=== PATIENT | female | born 1990 | race Two or more races ===

== ENCOUNTER 2020-08-09 11:40 | Emergency (ER) | payer OTHER, SELFPAY ==
[2020-08-09 11:41] VITALS: BP 122/81; PULSE 73; RESP 16; TEMP 36.8; O2SAT 100; BMI 27.1
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
== END 2020-08-09 14:39 | disposition home or self-care (01) ==
PROVIDERS: Emergency Provider Emergency Medicine; PCP Internal Medicine
DX: S13.4XXA Sprain of ligaments of cervical spine, initial encounter (principal); S16.1XXA Strain of muscle, fascia and tendon at neck level, initial encounter; V43.62XA Car passenger injured in collision with other type car in traffic accident, initial encounter; Y93.89 Activity, other specified; Y92.414 Local residential or business street as the place of occurrence of the external cause; Y99.9 Unspecified external cause status
CPT/HCPCS: 99283

== ENCOUNTER 2020-12-04 16:42 | Emergency (ER) | payer OTHER, SELFPAY ==
--- NOTE | 2020-12-04 | ECG_ITS ---
Test Reason : CHEST PAIN Blood Pressure : / mmHG Vent. Rate : 074 BPM Atrial Rate : 074 BPM P-R Int : 124 ms QRS Dur : 068 ms QT Int : 380 ms P-R-T Axes : 037 055 057 degrees QTc Int : 421 ms Normal sinus rhythm Normal ECG No previous ECGs available Referred By: Generic ED Physician Electronically Signed By:HUSSAIN ELDER
--- NOTE | ~2020-12-04 | XR_ITS ---
EXAMINATION: XR CHEST CLINICAL INFORMATION: Chest pain and cough COMPARISON: None TECHNIQUE: Frontal view of the chest was obtained. FINDINGS: No significant abnormality is noted involving the heart, lungs, mediastinum, bony thorax or soft tissues. XR/XR chest 1V IMPRESSION: Unremarkable examination.
[2020-12-04 16:56] VITALS: BP 120/79; PULSE 75; RESP 16; TEMP 36.8; O2SAT 99; BMI 27.3
--- NOTE | 2020-12-04 17:08 | ED_ITS ---
HPI - Chest Pain General Chief Complaint: Chest Pain Stated Complaint: Chest pain/ +Covid 11/24 Time Seen by Provider: 12/04/20 17:07 Source: patient Mode of arrival: ambulatory Limitations: no limitations History of Present Illness HPI narrative: 30-year-old female presents with upper respiratory symptoms consistent with her COVID positive diagnosis and has chest pain on inspiration with heaviness greater at night during the day. She states that she has been taking [id number] medications for her cough with poor effect. She did not report any recent travel, clotting factor deficiencies, hormonal chemotherapy use, denies palpitations, dizziness, abdominal pain, abdominal distention, nausea, vomiting, diarrhea, constipation, and edema. MD complaint: chest pain Onset (ago): day(s) Timing of current episode: episodic Onset: during rest Pain location: substernal Pain radiation: none Severity: moderate Quality: tightness and heaviness Relieving factors: nothing Exacerbating factors: exertion Context: recent illness Associated symptoms: fever and cough Treatment prior to arrival: none Risk Factors Coronary artery disease risk factors: none Thoracic aortic dissection risk factors: none Related Data On Oral Contraceptives: No Previous Rx's Medication Instructions Recorded cyclobenzaprine 10 mg tablet 10 mg PO TID PRN #10 tab 08/09/20 ibuprofen 600 mg tablet 600 mg PO Q8H PRN #20 tab 08/09/20 lidocaine 5 % topical patch 1 patch TOPICAL DAILY #15 ea 08/09/20 (Lidoderm) benzonatate 100 mg capsule 100 mg PO TID PRN 10 Days #30 cap 12/04/20 (Tessalon Perles) codeine 10 mg-guaifenesin 100 mg/5 10 ml PO Q4-6H PRN 7 Days ml 12/04/20 mL oral liquid Allergies Allergy/AdvReac Type Severity Reaction Status Date / Time No Known Allergies Allergy Unverified 12/25/19 16:47 Review of Systems Review of Systems: Constitutional: positive Fever, no Chills, positive fatigue, positive Malaise ENT/Mouth: No sore throat, positive runny nose Eyes: No Discharge Cardiovascular: Positive Chest Pain, No SOB Respiratory: Positive Cough, positive Sputum, No Wheezing, No Smoke Exposure, No Dyspnea Gastrointestinal: No Nausea, No Vomiting, No Diarrhea Genitourinary: no irregular bleeding, No Dysuria, No Urinary Frequency, No Hematuria, No Urinary Incontinence, No Urgency, No Flank Pain, Musculoskeletal: positive Myalgia Skin: No rash Neuro: No Headache Yes all other systems are reviewed and are negative [facility] Past Medical History Attestation statement: The following information was validated with the patient. Medical History No known health problems Surgical History H/O LEEP [place] teeth extracted Social History Social History Advance Directives: No Advance Directives Information Provided: No Patient : No Physical Exam Vital Signs: Vital Signs: Last Vital Signs Temp 98.3 F 12/04/20 16:56 Pulse 75 12/04/20 16:56 Resp 16 12/04/20 16:56 BP 120/79 12/04/20 16:56 Pulse Ox 99 12/04/20 16:56 Body Mass Index 27.3 Appearance: Alert. Oriented X3. No acute distress. Eyes: Pupils equal, round and reactive to light. ENT: Pharynx normal. Neck: Normal inspection. Neck supple. CVS: Normal heart rate and rhythm. Pulses normal. Respiratory: No respiratory distress. Lung sounds clear to auscultation all lobes. No chest wall tenderness to palpation. Abdomen: Soft and nontender. No past splenomegaly. Skin: Skin warm and dry. Normal skin color. Normal skin turgor. Extremities: No lower extremity edema. Moves all extremities against resistance, gait well balanced well coordinated. Neuro: No motor deficit. No sensory deficit. Cranial nerves 2-12 intact. Course Course Course Narrative: 30-year-old female presents with increase of COVID-19 symptoms. States that she does not have any prior history of DVT, is not on any hormones or chemotherapeutic agents, has not had any recent travel, denies swelling in extremities. No family history of clotting factor deficiency. Patient's EKG is normal sinus, will order chest x-ray, and D-dimer to alleviate patient's concern regarding DVT versus PE. Patient's PE scores are 0. D-dimer negative. Chest x-ray negative. EKG normal sinus. Low likelihood of PE, DVT, ACS. Will discharge home with supportive measures for COVID-19. Patient verbalized understanding of and agrees to plan of care discharge home. MDM - Chest Pain Differential Diagnosis Differential diagnosis: Likely fracture of rib, pneumothorax, atypical chest pain, costochondritis and chest pain Medical Records Data Attestation: I reviewed the patient's medical records. Lab Data Attestation: I reviewed the patient's lab results. Labs: Lab Results 12/04/20 Range/Units 17:27 D-Dimer < 200 NG/ML Imaging Data Chest x-ray: Attestation: I personally reviewed and interpreted this imaging study as follows: Radiologist's impression: EXAMINATION: XR CHEST CLINICAL INFORMATION: Chest pain and cough COMPARISON: None TECHNIQUE: Frontal view of the chest was obtained. FINDINGS: No significant abnormality is noted involving the heart, lungs, mediastinum, bony thorax or soft tissues. XR/XR chest 1V IMPRESSION: Unremarkable examination. ECG Data ECG #1: Attestation: I personally reviewed and interpreted this ECG as follows: ECG interpretation date: 12/04/20 ECG interpretation time: 18:36 Prior ECG tracings: not available for review Interpretation: Ventricular rate 74 beats per minute, NC 124, QRS 68, QTC 380, QTC 421, normal sinus rhythm, normal EKG, no indication of ST elevation or depression indicating ischemia no prior EKGs for evaluation Discharge Plan Discharge Clinical Impression: Atypical chest pain, COVID-19 Patient Disposition: Home, Self-Care Instructions: Noncardiac Chest Pain (ED), COVID-19 (Coronavirus Disease 2019) (ED) Additional Instructions: You were evaluated for chest pain related to COVID-19 diagnosis. Your D-dimer is negative. It is highly unlikely that you have blood clot at this time. Your chest x-ray is normal. Please continue to follow social isolation guidelines for COVID-19. Continue to take supportive measures which include [id number] cough suppressants and Tylenol. Thank you for choosing this emergency department for evaluation. Please follow-up with primary care physician as needed. Return to the emergency department for any new, concerning, or worsening symptoms. Prescriptions: New benzonatate [Tessalon Perles] 100 mg capsule 100 mg PO TID PRN (Reason: cough) 10 Days Qty: 30 RF: 0 codeine-guaifenesin 10-100 mg/5 mL liquid 10 ml PO Q4-6H PRN (Reason: cough) 7 Days RF: 0 No Action cyclobenzaprine 10 mg tablet 10 mg PO TID PRN (Reason: muscle spasm) Qty: 10 RF: 0 lidocaine [Lidoderm] 5 % adhesive patch,medicated 1 patch topical DAILY Qty: 15 RF: 0 ibuprofen 600 mg tablet 600 mg PO Q8H PRN (Reason: pain) Qty: 20 RF: 0 Stand Alone Forms: Work/School Release Interventions: ED Discharge Assessment Last Done: 12/04/20 19:05 Discharge Date/Time: 12/04/20 19:05
[2020-12-04 18:17] LABS: D Dimer < 200 NG/ML
[2020-12-04] MEDS: Benzonatate 100 MG CAPSULE 200 MG PO (18:45)
== END 2020-12-04 19:05 | disposition home or self-care (01) ==
PROVIDERS: Nurse Practitioner Family; Emergency Provider Emergency Medicine Emergency Medical Services; PCP Internal Medicine
DX: R07.89 Other chest pain (principal); U07.1 COVID-19
CPT/HCPCS: 36415; 71045; 85379; 93005; 99283

== ENCOUNTER 2021-02-22 13:03 | Emergency (ER) | payer OTHER, SELFPAY ==
--- NOTE | ~2021-02-22 | XR_ITS ---
EXAMINATION: XR CHEST CLINICAL INFORMATION: Cough and chest discomfort COMPARISON: Previous chest x-ray November 2020 TECHNIQUE: 2 views of the chest were obtained. FINDINGS: No significant abnormality is noted involving the heart, lungs, mediastinum, bony thorax or soft tissues. XR/XR chest 2V IMPRESSION: Unremarkable examination.
[2021-02-22 13:39] VITALS: BP 113/60; PULSE 82; RESP 18; TEMP 36.3; O2SAT 98; BMI 28.1
--- NOTE | 2021-02-22 14:40 | ED_ITS ---
HPI - URI/Sore Throat General Chief Complaint: Upper Respiratory Symptoms Stated Complaint: cough, chest discomfort Time Seen by Provider: 02/22/21 14:23 Source: patient Mode of arrival: ambulatory Limitations: no limitations History of Present Illness HPI Narrative: 31-year-old female with history of COVID-19 in November 2020 presenting to the ER with chest congestion, cough, nasal congestion for the last several days. She reports usually getting sick this time of year but during this and since her symptoms seems to be persisting and not getting better. She has no known sick contacts. She has not vaccinated for COVID-19 but she recently had a few months ago. She has had no fever or chills. No shortness of breath or chest pain. Her main complaint is dry cough that is keeping up at night. MD elicited complaint: cough and nasal congestion Onset (ago): day(s) Consistency: intermittent and progressively worsening Severity: moderate Description of mucous: clear Able to tolerate fluids by mouth: Yes Exacerbating factors: nothing Relieving factors: nothing Context: sick contacts Associated symptoms: chills, nasal congestion and cough Treatments prior to arrival: none Related Data Previous Rx's Medication Instructions Recorded cyclobenzaprine 10 mg tablet 10 mg PO TID PRN #10 tab 08/09/20 ibuprofen 600 mg tablet 600 mg PO Q8H PRN #20 tab 08/09/20 lidocaine 5 % topical patch 1 patch TOPICAL DAILY #15 ea 08/09/20 (Lidoderm) benzonatate 100 mg capsule 100 mg PO TID PRN 10 Days #30 cap 12/04/20 (Tessalon Perles) codeine 10 mg-guaifenesin 100 mg/5 10 ml PO Q4-6H PRN 7 Days ml 12/04/20 mL oral liquid hydrocodone-homatropine 5 mg-1.5 5 ml PO Q6H PRN #60 ml 02/22/21 mg/5 mL (5 mL) oral syrup (Hycodan) Allergies Allergy/AdvReac Type Severity Reaction Status Date / Time No Known Allergies Allergy Unverified 12/25/19 16:47 Review of Systems Review of Systems: Constitutional: No Fever, + Chills ENT/Mouth: No sore throat, + Rhinorrhea, No Swallowing Difficulty, +Nasal congestion Eyes: No Eye Pain, No Swelling, No Redness Cardiovascular: No Chest Pain, No SOB, No Orthopnea, No Edema Respiratory: + Cough, No Sputum, No Wheezing, No dyspnea Gastrointestinal: No Nausea, No Vomiting, No Diarrhea, No abdominal Pain Musculoskeletal: No joint pain, No Myalgias Skin: No Skin Lesions, No rash Neuro: No Weakness, No Numbness, No Dizziness, No Headache Heme/Lymph: No Bruising, No Lymphadenopathy Endocrine: No Polyuria, No Polydipsia PMFSH Past Medical History Medical History No known health problems Surgical History H/O LEEP [place] teeth extracted Social History Social History Advance Directives: No Advance Directives Information Provided: Yes Physical Exam Vital Signs: Vital Signs: Last Vital Signs Temp 97.4 F 02/22/21 13:39 Pulse 82 02/22/21 13:39 Resp 18 02/22/21 13:39 BP 113/60 02/22/21 13:39 Pulse Ox 98 02/22/21 13:39 Body Mass Index 28.1 Appearance: Alert. Oriented X3. No acute distress. Eyes: Pupils equal, round and reactive to light. ENT: Pharynx normal. No tonsillar swelling or exudate. Uvula midline. tympanic membranes bilaterally. Neck: Normal inspection. Neck supple. CVS: Normal heart rate and rhythm. Pulses normal. Respiratory: No respiratory distress. Breath sounds normal. Skin: Skin warm and dry. Normal skin color. Normal skin turgor. No rashes. Extremities: No lower extremity edema. No calf tenderness. Neuro: Oriented X 3. Grossly normal, nonfocal. Course Course Course Narrative: 31-year-old female presenting to the ER with dry cough, chest congestion, nasal congestion for the last several days. She recently had COVID- 19. She is nontoxic-appearing normal vital signs on arrival. Her lungs are not clear. Viral PCR chest x-ray ordered. Reevaluation(s) Reevaluation #1: Viral PCR is negative. Her chest x-ray is clear. She most likely has a respiratory virus, treatment is supportive care. Will prescribe Vicodin p.r.n. cough due to her worsening symptoms at night and inability to sleep. She is stable for discharge home with plan to follow up with her doctor. Symptomatic management discussed as well as return precautions. Stable for DC home MDM - URI/Sore Throat Lab Data Labs: Lab Results 02/22/21 02/22/21 Range/Units 13:41 15:16 Urine Test NEGATIVE (NEGATIVE) Influenza Type A (PCR) NEGATIVE (Negative) Influenza Type B (PCR) NEGATIVE (Negative) RSV RNA Qual (PCR) NEGATIVE (Negative) SARS-CoV-2 RNA (RT-PCR) NEGATIVE (Negative) Critical Care Time Critical Care Time Critical Care Time: No Discharge Plan Discharge Clinical Impression: Upper respiratory infection Qualifiers: URI type: unspecified URI Qualified Code(s): J06.9 - Acute upper respiratory infection, unspecified Patient Disposition: Home, Self-Care Instructions: Upper Respiratory Infection (ED) Additional Instructions: You were negative for COVID-19, influenza, and RSV. Your chest x-ray was clear. Recommend [id number] cold and flu medications as needed for symptoms. Continue [id number] cough suppressants. Take the prescribed cough syrup as needed for severe coughing. This has a narcotic in it, do not drive after taking this medication. Rest and stay hydrated. Follow-up with your doctor as needed. If you develop new or worsening symptoms call 911 or come back to the ER for further evaluation. Prescriptions: New hydrocodone-homatropine [Hycodan] 5-1.5 mg/5 mL (5 mL) syrup 5 ml PO Q6H PRN (Reason: cough) Qty: 60 RF: 0 No Action cyclobenzaprine 10 mg tablet 10 mg PO TID PRN (Reason: muscle spasm) Qty: 10 RF: 0 lidocaine [Lidoderm] 5 % adhesive patch,medicated 1 patch topical DAILY Qty: 15 RF: 0 ibuprofen 600 mg tablet 600 mg PO Q8H PRN (Reason: pain) Qty: 20 RF: 0 benzonatate [Tessalon Perles] 100 mg capsule 100 mg PO TID PRN (Reason: cough) 10 Days Qty: 30 RF: 0 codeine-guaifenesin 10-100 mg/5 mL liquid 10 ml PO Q4-6H PRN (Reason: cough) 7 Days RF: 0 Stand Alone Forms: Work/School Release Interventions: ED Discharge Assessment Last Done: 02/22/21 16:38 Discharge Date/Time: 02/22/21 16:38
[2021-02-22 14:41] LABS: Influenza A PCR NEGATIVE (Negative); Influenza B PCR NEGATIVE (Negative); Resp Syncy Virus RNA Qual PCR NEGATIVE (Negative); SARS COV2 PCR INHOUSE NEGATIVE (Negative)
[2021-02-22 15:30] LABS: UPreg QC Valid YES; Urine Pregnancy NEGATIVE (NEGATIVE)
== END 2021-02-22 16:38 | disposition home or self-care (01) ==
PROVIDERS: Physician Assistant; Emergency Provider Emergency Medicine Emergency Medical Services; PCP Internal Medicine
DX: J06.9 Acute upper respiratory infection, unspecified (principal); Z20.822 Contact with and (suspected) exposure to COVID-19; Z79.899 Other long term (current) drug therapy
CPT/HCPCS: 0241U; 36415; 71046; 81025; 99283

== ENCOUNTER 2021-05-02 10:52 | Emergency (ER) | payer OTHER, SELFPAY ==
--- NOTE | ~2021-05-02 | XR_ITS ---
EXAMINATION: XR CHEST CLINICAL INFORMATION: Cough COMPARISON: Previous chest x-ray February 2021 TECHNIQUE: Frontal view of the chest was obtained. FINDINGS: No significant abnormality is noted involving the heart, lungs, mediastinum, bony thorax or soft tissues. XR/XR chest 1V IMPRESSION: Unremarkable examination.
[2021-05-02 11:11] VITALS: BP 119/79; PULSE 84; RESP 19; TEMP 36.3; O2SAT 99; BMI 26.6
[2021-05-02 11:50] LABS: COVID-19 Test Positive (Negative)
--- NOTE | 2021-05-02 12:25 | ED.URI ---
HPI - URI/Sore Throat General Chief Complaint: Upper Respiratory Symptoms Stated Complaint: Cough/SOB Time Seen by Provider: 05/02/21 11:57 Source: patient Mode of arrival: ambulatory Limitations: no limitations History of Present Illness HPI Narrative: patient has had a cough for 2 months, now with feeling worse. Can't sleep because of the cough. Saw her PCP and is going to be checked for asthma. Patient is not vaccinated, she was checked for COVID a month ago and was negative. MD elicited complaint: cough Onset (ago): week(s) Consistency: constant Severity: mild Able to tolerate fluids by mouth: Yes Relieving factors: nothing Associated symptoms: fever and chills Related Data Previous Rx's Medication Instructions Recorded cyclobenzaprine 10 mg tablet 10 mg PO TID PRN #10 tab 08/09/20 ibuprofen 600 mg tablet 600 mg PO Q8H PRN #20 tab 08/09/20 lidocaine 5 % topical patch 1 patch TOPICAL DAILY #15 ea 08/09/20 (Lidoderm) benzonatate 100 mg capsule 100 mg PO TID PRN 10 Days #30 cap 12/04/20 (Tessalon Perles) codeine 10 mg-guaifenesin 100 mg/5 10 ml PO Q4-6H PRN 7 Days ml 12/04/20 mL oral liquid hydrocodone-homatropine 5 mg-1.5 5 ml PO Q6H PRN #60 ml 02/22/ mg/5 mL (5 mL) oral syrup (Hycodan) benzonatate 100 mg capsule 100 mg PO TID PRN #30 cap 05/02/21 Allergies Allergy/AdvReac Type Severity Reaction Status Date / Time No Known Allergies Allergy Unverified 12/25/19 16:47 Review of Systems Constitutional: Constitutional: Reports no additional constitutional complaints Eyes: Eyes: Reports no additional eye complaints ENT: Denies dizziness Cardiovascular: Cardiovascular: Reports no additional cardiovascular complaints Respiratory: Respiratory: Reports as per HPI Gastrointestinal: Gastrointestinal: Reports no additional gastrointestinal complaints Genitourinary: Genitourinary: Reports no additional female genitourinary complaints Musculoskeletal: Musculoskeletal: Reports no additional musculoskeletal complaints Integumentary/Breasts: Skin/Breast: Denies rash Neurologic: Reports system reviewed and no additional complaints, except as documented, Denies dizziness and Denies Sensory deficit (Neuro) Psychiatric: Psychiatric: Denies anxiety PMFSH Past Medical History Medical History No known health problems Surgical History H/O LEEP [place] teeth extracted Social History Social History Advance Directives: No Advance Directives Information Provided: No Patient : No Physical Exam Vital Signs: Vital Signs: Last Vital Signs Temp 97.4 F 05/02/21 11:11 Pulse 84 05/02/21 11:11 Resp 19 05/02/21 11:11 BP 119/79 05/02/21 11:11 Pulse Ox 99 05/02/21 11:11 BMI result Body Mass Index 26.6 Const: General: healthy appearing Nutritional Appearance: average body habitus Orientation/consciousness: oriented to person and patient oriented x3 Limitations: no limitations HENMT: Head: Yes normal to inspection Ears: external ears normal General nose exam: Normal external nose present Mouth: Normal oral and palatal mucosa present and oropharynx normal Throat: Yes posterior oropharynx normal Eyes: General: appearance normal, both eyes and all related structures Neck: Other: supple Neck: Yes normal visual inspection Chest: Chest palpation & inspection: normal inspection of the chest Resp: Auscultation: clear to auscultation bilaterally Cardio: Jugular venous distension: no JVD Rate: regular rate Rhythm: regular rhythm Heart sounds: S1 normal heart sound present and S2 normal heart sound present GI: Inspection: Yes normal to inspection Palpation (GI): Soft to palpation, nontender and No hepatosplenomegaly present Auscultation: normal bowel sounds : General: Yes no CVA tenderness Back/Spine/Pelvis: Back: no CVA tenderness Skin: General skin exam: no rashes or lesions noted Neuro: General: oriented to person and patient oriented x3 Cranial nerves: Yes CN's II-XII intact bilaterally Motor exam (neuro): 5/5 motor strength present throughout Sensory Exam: No Sensory deficit (Neuro) Extrem: General: Yes normal to inspection Psych: Appearance: grossly normal Course Reevaluation(s) Reevaluation #1: Patient with negative chest xray, and normal vitals discussed quarantine procedures Time: 12:35 MDM - URI/Sore Throat Lab Data Labs: Lab Results 05/02/21 Range/Units 11:21 COVID-19 (LUCY) Positive A (Negative) COVID-19 Clin Com See Note Imaging Data Chest x-ray: Radiologist's impression: FINDINGS: No significant abnormality is noted involving the heart, lungs, mediastinum, bony thorax or soft tissues. XR/XR chest 1V IMPRESSION: Unremarkable examination. ? Discharge Plan Discharge Clinical Impression: COVID-19 Upper respiratory infection Qualifiers: URI type: unspecified viral URI Qualified Code(s): J06.9 - Acute upper respiratory infection, unspecified Patient Disposition: Home, Self-Care Instructions: COVID-19 (Coronavirus Disease 2019) (ED) Prescriptions: New benzonatate 100 mg capsule 100 mg PO TID PRN (Reason: cough) Qty: 30 RF: 0 No Action cyclobenzaprine 10 mg tablet 10 mg PO TID PRN (Reason: muscle spasm) Qty: 10 RF: 0 lidocaine [Lidoderm] 5 % adhesive patch,medicated 1 patch topical DAILY Qty: 15 RF: 0 ibuprofen 600 mg tablet 600 mg PO Q8H PRN (Reason: pain) Qty: 20 RF: 0 benzonatate [Tessalon Perles] 100 mg capsule 100 mg PO TID PRN (Reason: cough) 10 Days Qty: 30 RF: 0 codeine-guaifenesin 10-100 mg/5 mL liquid 10 ml PO Q4-6H PRN (Reason: cough) 7 Days RF: 0 hydrocodone-homatropine [Hycodan] 5-1.5 mg/5 mL (5 mL) syrup 5 ml PO Q6H PRN (Reason: cough) Qty: 60 RF: 0 Referrals: Demi Montalvo MD [Primary Care Provider] - 1 week Stand Alone Forms: Work/School Release
== END 2021-05-02 14:33 | disposition home or self-care (01) ==
PROVIDERS: Emergency Provider Emergency Medicine; PCP Internal Medicine
DX: U07.1 COVID-19 (principal); J06.9 Acute upper respiratory infection, unspecified
CPT/HCPCS: 71045; 87635; 99283

== ENCOUNTER 2022-03-17 07:44 | Emergency (ER) | payer OTHER, SELFPAY ==
[2022-03-17 07:52] VITALS: BP 116/68; PULSE 63; RESP 18; TEMP 36.2; O2SAT 98; BMI 29.0
[2022-03-17 08:52] LABS: Influenza A PCR NEGATIVE (Negative); Influenza B PCR NEGATIVE (Negative); Resp Syncy Virus RNA Qual PCR NEGATIVE (Negative); SARS COV2 PCR INHOUSE NEGATIVE (Negative)
--- NOTE | 2022-03-17 09:40 | ED.URI ---
HPI - URI/Sore Throat General Chief Complaint: General Medical Stated Complaint: Sore Throat Not Feeling Well Time Seen by Provider: 03/17/22 09:03 Source: patient Mode of arrival: ambulatory Limitations: no limitations History of Present Illness MD elicited complaint: cough and sore throat Onset (ago): week(s) (1) Consistency: constant and progressively worsening Severity: moderate Description of mucous: clear, watery, yellow and green Able to tolerate fluids by mouth: Yes Exacerbating factors: swallowing Relieving factors: nothing Context: sick contacts ( Multiple work colleagues had similar symptoms) Associated symptoms: chills, myalgias, sore throat and cough Treatments prior to arrival: none Related Data Previous Rx's Medication Instructions Recorded cyclobenzaprine 10 mg tablet 10 mg PO TID PRN muscle spasm #10 08/09/20 tabs ibuprofen 600 mg tablet 600 mg PO Q8H PRN pain #20 tabs 08/09/20 lidocaine 5 % topical patch 1 patch topical DAILY #15 ea 08/09/20 (Lidoderm) benzonatate 100 mg capsule 100 mg PO TID PRN cough 10 days 12/04/20 (Tessalon Viv) #30 caps codeine 10 mg-guaifenesin 100 mg/5 10 ml PO Q4-6H PRN cough 7 days 12/04/20 mL oral liquid hydrocodone-homatropine 5 mg-1.5 5 ml PO Q6H PRN cough #60 mL 02/22/21 mg/5 mL (5 mL) oral syrup (Hycodan) benzonatate 100 mg capsule 100 mg PO TID PRN cough #30 caps 05/02/21 cephalexin 500 mg capsule 500 mg PO BID 10 days #20 caps 03/17/22 codeine 10 mg-guaifenesin 100 mg/5 5 ml PO Q6H PRN cold symptoms #120 03/17/22 mL oral liquid (Guaifenesin AC) mL Allergies Allergy/AdvReac Type Severity Reaction Status Date / Time No Known Allergies Allergy Unverified 03/17/22 08:00 Review of Systems Review of Systems: Constitutional : No Weight loss, No Fever, No Chills, No Night Sweats, + Fatigue, + Malaise ENT/Mouth : No Hearing loss, No Ear Pain, No Nasal Congestion, No Sinus Pain, No Hoarseness, + sore throat, No Rhinorrhea, No Swallowing Difficulty Eyes: No Eye Pain, No Swelling, No Redness, No Foreign Body, No Discharge, No Vision Changes Cardiovascular : No Chest Pain, No SOB, No Dyspnea on Exertion, No Orthopnea, No Edema, No Palpitations Respiratory : + Cough, + Sputum, No Wheezing, No Smoke Exposure, No Dyspnea Gastrointestinal : No Nausea, No Vomiting, No Diarrhea, No Constipation, No abdominal Pain, No Hematochezia, No Melena Genitourinary : no irregular bleeding, No Dysuria, No Urinary Frequency, No Hematuria, No Urinary Incontinence, No Urgency, No Flank Pain, No Urinary Flow Changes, No Hesitancy Musculoskeletal : No joint pain, + Myalgias, No Joint Swelling Skin : No Skin Lesions, No rash Neuro : No Weakness, No Numbness, No Paresthesias, No Loss of Consciousness, No Dizziness, No Headache Psych : No Anxiety/Panic, No Depression, No SI/HI/AH/VH, No Social Issues, Heme/Lymph: No Bruising, No Bleeding,No Lymphadenopathy Endocrine : No Polyuria, No Polydipsia, No Temperature Intolerance Yes all other systems are reviewed and are negative [facility] Past Medical History Attestation statement: The following information was validated with the patient. Source: old records reviewed and nursing notes reviewed Medical History No known health problems Surgical History H/O LEEP [employer] teeth extracted Social History Social History Advance Directives: No Advance Directives Information Provided: No Physical Exam Vital Signs: Vital Signs: Last Vital Signs Temp 97.2 F 03/17/22 07:52 Pulse 63 03/17/22 07:52 Resp 18 03/17/22 07:52 BP 116/68 03/17/22 07:52 Pulse Ox 98 03/17/22 07:52 O2 Del Method 03/17/22 07:52 BMI result Body Mass Index 29.0 Vital signs reviewed. Blood pressure normal. Pulse normal. Respiration normal. Oxygen normal. Temperature normal. Appearance: Alert. Oriented X3. No acute distress. Head: Normal external exam. Normocephalic. Atraumatic. Eyes: PERRLA. EOMI. Conjunctiva and sclera normal. Eyelids normal. ENT: EAC normal. TM's Normal. posterior pharynx mildly erythematous. No exudate is noted. The rest of the oropharynx is within normal limits. Soft and hard palate within normal limits.. Uvula midline. Moist mucous membranes. No lesions/ulcerations or masses noted on the tongue. Normal voice. No trismus noted. No drooling noted. No muffled voice noted. Neck: Normal inspection. Neck supple. FROM. No adenopathy. Thyroid Normal. No meningeal signs. CVS: Normal heart rate and rhythm. Heart sound normal. Pulses normal throughout. No murmurs/rales/gallops. Respiratory: No respiratory distress. Painless inspiration. Breath sounds normal. No wheezes/rales/rhonchi noted. Chest nontender. No accessory muscle usage noted or decreased air movement noted. Abdomen: Soft and nontender. Back: Full range of motion noted. Nontender. Skin: Skin warm and dry. Normal skin color. Normal skin turgor. No rashes/lesions/lacerations noted. Extremities: Extremities exhibit normal range of motion and nontender. Neuro: Oriented X 3. No motor deficit. No sensory deficit. Reflexes normal. Normal steady gait. No focal neuro deficits noted. CN's II-XII intact bilaterally? Vascular: + radial pulses. Normal cap refill. No cyanosis noted to upper extremity nails Course Course Course Narrative: 32-year-old female presenting with URI symptoms which include a sore throat, body aches, malaise, fatigue, ear discomfort and cough along with pain with coughing to the chest area for the past week. Reports multiple sick contacts at work. She denies any other symptoms. She is negative for COVID/RSV/ flu. She is negative for strep. Although my exam it appears that she might have a bacterial pharyngitis therefore will treat. Lungs clear to auscultation. CV RRR. Along with instructions return if any new or worsening symptoms follow up with primary care provider. Patient understands agrees with this plan. Medical Decision Making Medical Decision Making Lab Attestation: I reviewed the patient's lab results. Discharge Plan Discharge Clinical Impression: Pharyngitis Patient Disposition: Home, Self-Care Instructions: Pharyngitis (ED) Prescriptions: New cephalexin 500 mg capsule 500 mg PO BID 10 Days Qty: 20 0RF codeine-guaifenesin [Guaifenesin AC] 10-100 mg/5 mL liquid 5 ml PO Q6H PRN (Reason: cold symptoms) Qty: 120 0RF No Action cyclobenzaprine 10 mg tablet 10 mg PO TID PRN (Reason: muscle spasm) Qty: 10 0RF lidocaine [Lidoderm] 5 % adhesive patch,medicated 1 patch topical DAILY Qty: 15 0RF Rx Instructions: leave on most painful area for up to 12 hrs ibuprofen 600 mg tablet 600 mg PO Q8H PRN (Reason: pain) Qty: 20 0RF benzonatate [Tessalon Perles] 100 mg capsule 100 mg PO TID PRN (Reason: cough) 10 Days Qty: 30 0RF codeine-guaifenesin 10-100 mg/5 mL liquid 10 ml PO Q4-6H PRN (Reason: cough) 7 Days 0RF Rx Instructions: May substitute for formula excepted by her insurance hydrocodone-homatropine [Hycodan] 5-1.5 mg/5 mL (5 mL) syrup 5 ml PO Q6H PRN (Reason: cough) Qty: 60 0RF benzonatate 100 mg capsule 100 mg PO TID PRN (Reason: cough) Qty: 30 0RF Referrals: Demi Montalvo MD [Primary Care Provider] - 2 days Stand Alone Forms: Work/School Release
[2022-03-17 09:42] LABS: Strep A Nucleic Acid Negative (Negative)
== END 2022-03-17 09:55 | disposition home or self-care (01) ==
PROVIDERS: Physician Assistant Medical; Emergency Provider Emergency Medicine Emergency Medical Services; PCP Internal Medicine
DX: J02.9 Acute pharyngitis, unspecified (principal); R05.9 Cough, unspecified; M79.10 Myalgia, unspecified site; Z20.822 Contact with and (suspected) exposure to COVID-19; Z79.899 Other long term (current) drug therapy
CPT/HCPCS: 0241U; 36415; 87651; 99283

== ENCOUNTER 2022-03-20 16:06 | Emergency (ER) | payer OTHER, SELFPAY ==
[2022-03-20 16:17] VITALS: BP 162/72; PULSE 85; RESP 18; TEMP 36.7; O2SAT 100; BMI 28.7
--- NOTE | 2022-03-20 16:18 | ED_ITS ---
HPI - URI/Sore Throat General Chief Complaint: General Medical <Rachelle Almeida NP - Last Filed: 03/20/22 16:20> Stated Complaint: strep? <Rachelle Almeida NP - Last Filed: 03/20/22 16:20> Time Seen by Provider: 03/20/22 16:31 <Rachelle Almeida NP - Last Filed: 03/20/22 16:20> Source: patient <JESSICA Dsouza - Last Filed: 03/20/22 17:31> Mode of arrival: ambulatory <JESSICA Dsouza - Last Filed: 03/20/22 17:31> Limitations: no limitations <JESSICA Dsozua - Last Filed: 03/20/22 17:31> History of Present Illness HPI Narrative: 32 y/o female presents to the ER for evaluation of sore throat for the last 5 days. She states it has been getting worse and hurts to swallow. She was sick last week with a cold. She reports the sore throat started on 03/16 and has been getting worse. She feels like her ears are getting backed up too. She has some mild bodyaches and headaches. She has a slight cough. She has had contact with members of her family who have had both COVID and the flu. She denies SOB, difficultly breathing, N/V or abdominal pain. <JESSICA Dsouza - Last Filed: 03/20/22 17:31> MD elicited complaint: sore throat and nasal congestion <JESSICA Dsouza - Last Filed: 03/20/22 17:31> Onset (ago): day(s) (5) <JESSICA Dsouza - Last Filed: 03/20/22 17:31> Consistency: progressively worsening <JESSICA Dsouza Last Filed: 03/20/22 17:31> Severity: moderate <JESSICA Dsouza Last Filed: 03/20/22 17:31> Able to tolerate fluids by mouth: Yes <JESSICA Dsouza Last Filed: 03/20/22 17:31> Exacerbating factors: swallowing <JESSICA Dsouza Last Filed: 03/20/22 17:31> Relieving factors: OTC cold medicine <JESSICA Dsouza - Last Filed: 03/20/22 17:31> Context: sick contacts <JESSICA Dsouza - Last Filed: 03/20/22 17:31> Associated symptoms: myalgias, nasal congestion, sore throat and cough <JESSICA Dsouza - Last Filed: 03/20/22 17:31> Treatments prior to arrival: none <JESSICA Dsouza - Last Filed: 03/20/22 17:31> Related Data Home Medications: Previous Rx's Medication Instructions Recorded cyclobenzaprine 10 mg tablet 10 mg PO TID PRN muscle spasm #10 08/09/20 tabs ibuprofen 600 mg tablet 600 mg PO Q8H PRN pain #20 tabs 08/09/20 lidocaine 5 % topical patch 1 patch topical DAILY #15 ea 08/09/20 (Lidoderm) benzonatate 100 mg capsule 100 mg PO TID PRN cough 10 days 12/04/20 (Flavio Nam) #30 caps codeine 10 mg-guaifenesin 100 mg/5 10 ml PO Q4-6H PRN cough 7 days 12/04/20 mL oral liquid hydrocodone-homatropine 5 mg-1.5 5 ml PO Q6H PRN cough #60 mL 02/22/21 mg/5 mL (5 mL) oral syrup (Hycodan) benzonatate 100 mg capsule 100 mg PO TID PRN cough #30 caps 05/02/21 cephalexin 500 mg capsule 500 mg PO BID 10 days #20 caps 03/17/22 codeine 10 mg-guaifenesin 100 mg/5 5 ml PO Q6H PRN cold symptoms #120 03/17/22 mL oral liquid (Guaifenesin AC) mL <Rachelle Almeida NP - Last Filed: 03/20/22 16:20> Allergies/Adverse Reactions: Allergies Allergy/AdvReac Type Severity Reaction Status Date / Time No Known Allergies Allergy Verified 03/20/22 16:17 <Rachelle Almeida NP - Last Filed: 03/20/22 16:20> Review of Systems Review of Systems: Constitutional: No Fever, No Chills ENT/Mouth: + sore throat, No Rhinorrhea, + Swallowing Difficulty, +Otalgia Eyes: No Eye Pain, No Swelling, No Redness Cardiovascular: No Chest Pain, No SOB Respiratory: +Cough, No Sputum, No Wheezing, No dyspnea Gastrointestinal: No Nausea, No Vomiting, No Diarrhea, No abdominal Pain Musculoskeletal: No joint pain, + Myalgias Skin: No Skin Lesions, No rash Neuro: No Weakness, No Dizziness, +Headache Heme/Lymph: No Lymphadenopathy <JESSICA Dsouza - Last Filed: 03/20/22 17:31> [facility] Past Medical History Medical History: Medical History No known health problems <Rachelle Almeida NP - Last Filed: 03/20/22 16:20> Surgical History: Surgical History H/O LEEP [place] teeth extracted <Rachelle Almeida NP - Last Filed: 03/20/22 16:20> Social History Social History: Social History Advance Directives: No Advance Directives Information Provided: No <Rachelle Almeida NP - Last Filed: 03/20/22 16:20> Physical Exam Vital Signs: Vital Signs: Last Vital Signs Temp 98.0 F 03/20/22 16:17 Pulse 85 03/20/22 16:17 Resp 18 03/20/22 16:17 BP 162/72 H 03/20/22 16:17 Pulse Ox 100 03/20/22 16:17 O2 Del Method 03/20/22 16:17 BMI result Body Mass Index 28.7 <Rachelle Almeida NP - Last Filed: 03/20/22 16:20> Vital Signs: Last Vital Signs Temp 98.0 F 03/20/22 16:17 Pulse 85 03/20/22 16:17 Resp 18 03/20/22 16:17 BP 162/72 H 03/20/22 16:17 Pulse Ox 100 03/20/22 16:17 O2 Del Method 03/20/22 16:17 BMI result Body Mass Index 28.7 <JESSICA Dsouza - Last Filed: 03/20/22 17:31> Appearance: Alert. Oriented X3. No acute distress. Eyes: Pupils equal, round and reactive to light. ENT: Pharynx with moist mucus membranes, no tonsillar enlargement or exudate, uvula midline. moderate generalized erythema noted. bilateral TMs are normal to inspection Neck: Normal inspection. Neck supple. CVS: Normal heart rate and rhythm. Pulses normal. Respiratory: No respiratory distress. Breath sounds normal. Abdomen: Soft and nontender. +BS x4 Skin: Skin warm and dry. Normal skin color. Normal skin turgor. No rashes. Extremities: No lower extremity edema. Normal inspection x4. Neuro: Oriented X 3. nonfocal <JESSICA Dsouza - Last Filed: 03/20/22 17:31> Course Course Course Narrative: This is a rapid medical exam. Deferred additional HPI, ROS and PE to primary provider. 32 yo female here with sore throat since sunday. Has had exposure to flu/covid. Will send testing for flu, covid, rsv and swab for strep. VSS. <Rachelle Almeida NP - Last Filed: 03/20/22 16:20> Reevaluation(s) Reevaluation #1: Strep test is negative. PO lidocaine and motrin ordered for sore throat. Tolerating PO <JESSICA Dsouza - Last Filed: 03/20/22 17:31> Reevaluation #2: Negative for COVID, flu, RSV. Stable for discharge home with supportive care and outpatient follow-up. <JESSICA Dsouza - Last Filed: 03/20/22 17:31> Medications Administered Discontinued Medications Generic Name Dose Route Start Last Admin Trade Name Freq PRN Reason Stop Dose Admin Ibuprofen 600 mg 03/20/22 16:49 03/20/22 17:26 Ibuprofen 600 Mg Tablet PO 03/20/22 16:50 600 mg ONCE ONE Administration Lidocaine HCl 15 ml 03/20/22 16:49 03/20/22 17:26 Lidocaine Hcl Viscous 2 % 15 Ml Solution MUCOUS MEM 03/20/22 16:50 15 ml ONCE ONE Administration <Rachelle Almeida NP - Last Filed: 03/20/22 16:20> Medications Administered Discontinued Medications Generic Name Dose Route Start Last Admin Trade Name Freq PRN Reason Stop Dose Admin Ibuprofen 600 mg 03/20/22 16:49 03/20/22 17:26 Ibuprofen 600 Mg Tablet PO 03/20/22 16:50 600 mg ONCE ONE Administration Lidocaine HCl 15 ml 03/20/22 16:49 03/20/22 17:26 Lidocaine Hcl Viscous 2 % 15 Ml Solution MUCOUS MEM 03/20/22 16:50 15 ml ONCE ONE Administration <JESSICA Dsouza - Last Filed: 03/20/22 17:31> Medical Decision Making Lab Data Labs: Lab Results 03/20/22 03/20/22 Range/Units 16:22 16:33 Influenza Type A (PCR) NEGATIVE (Negative) Influenza Type B (PCR) NEGATIVE (Negative) RSV RNA Qual (PCR) NEGATIVE (Negative) SARS-CoV-2 RNA (RT-PCR) NEGATIVE (Negative) S. pyogenes GrpA RODNEY Negative (Negative) <Rachelle Almeida NP - Last Filed: 03/20/22 16:20> Lab Results 03/20/22 03/20/22 Range/Units 16:22 16:33 Influenza Type A (PCR) NEGATIVE (Negative) Influenza Type B (PCR) NEGATIVE (Negative) RSV RNA Qual (PCR) NEGATIVE (Negative) SARS-CoV-2 RNA (RT-PCR) NEGATIVE (Negative) S. pyogenes GrpA RODNEY Negative (Negative) <JESSICA Dsouza - Last Filed: 03/20/22 17:31> Critical Care Time Critical Care Time Critical Care Time: No <JESSICA Dsouza - Last Filed: 03/20/22 17:31> Discharge Plan Discharge Clinical Impression: Acute viral syndrome <Rachelle Almeida NP - Last Filed: 03/20/22 16:20> Patient Disposition: Home, Self-Care <Rachelle Almeida NP - Last Filed: 03/20/22 16:20> Instructions: Viral Syndrome (ED) <Rachelle Almeida NP - Last Filed: 03/20/22 16:20> Additional Instructions: You tested negative for Strep throat. No antibiotics are indicated to treat your strep throat. He also has a negative for COVID-19, influenza a and B as well as RSV. Your symptoms likely due to another viral illness. Treatment is rest and supportive care. Make sure drinking plenty of fluids. Recommend gargling with warm salt water 2-3 times per day. Recommend over the counter Cepacol lozenges to help numb your throat. Take Motrin and Tylenol as needed for pain. Follow up wtih your doctor as needed. If you develop new or worsening symptoms call 911 or come back to the ER for further evaluation. <Rachelle Almeida NP - Last Filed: 03/20/22 16:20> Prescriptions: No Action cyclobenzaprine 10 mg tablet 10 mg PO TID PRN (Reason: muscle spasm) Qty: 10 0RF lidocaine [Lidoderm] 5 % adhesive patch,medicated 1 patch topical DAILY Qty: 15 0RF Rx Instructions: leave on most painful area for up to 12 hrs ibuprofen 600 mg tablet 600 mg PO Q8H PRN (Reason: pain) Qty: 20 0RF benzonatate [Tessalon Perles] 100 mg capsule 100 mg PO TID PRN (Reason: cough) 10 Days Qty: 30 0RF codeine-guaifenesin 10-100 mg/5 mL liquid 10 ml PO Q4-6H PRN (Reason: cough) 7 Days 0RF Rx Instructions: May substitute for formula excepted by her insurance cephalexin 500 mg capsule 500 mg PO BID 10 Days Qty: 20 0RF codeine-guaifenesin [Guaifenesin AC] 10-100 mg/5 mL liquid 5 ml PO Q6H PRN (Reason: cold symptoms) Qty: 120 0RF hydrocodone-homatropine [Hycodan] 5-1.5 mg/5 mL (5 mL) syrup 5 ml PO Q6H PRN (Reason: cough) Qty: 60 0RF benzonatate 100 mg capsule 100 mg PO TID PRN (Reason: cough) Qty: 30 0RF <Rachelle Almeida NP - Last Filed: 03/20/22 16:20> Referrals: Demi Montalvo MD [Primary Care Provider] - <Rachelle Almeida NP - Last Filed: 03/20/22 16:20> Stand Alone Forms: Work/School Release <Rachelle Almeida NP - Last Filed: 03/20/22 16:20>
[2022-03-20 16:56] LABS: Strep A Nucleic Acid Negative (Negative)
[2022-03-20 17:05] LABS: Influenza A PCR NEGATIVE (Negative); Influenza B PCR NEGATIVE (Negative); Resp Syncy Virus RNA Qual PCR NEGATIVE (Negative); SARS COV2 PCR INHOUSE NEGATIVE (Negative)
[2022-03-20] MEDS: Ibuprofen 600 MG TABLET PO (17:26)
[2022-03-20] MEDS: Lidocaine HCl Viscous 2 % 15 ML SOLUTION MUCOUS MEM (17:26)
== END 2022-03-20 17:37 | disposition home or self-care (01) ==
PROVIDERS: Nurse Practitioner Family; Emergency Provider Emergency Medicine; PCP Internal Medicine
DX: B34.9 Viral infection, unspecified (principal); J02.9 Acute pharyngitis, unspecified; Z20.822 Contact with and (suspected) exposure to COVID-19
CPT/HCPCS: 0241U; 36415; 87651; 99283

== ENCOUNTER 2023-05-23 09:44 | Emergency (ER) | payer OTHER, SELFPAY ==
--- NOTE | ~2023-05-23 | XR_ITS ---
EXAMINATION: XR CHEST CLINICAL INFORMATION: Chest pain COMPARISON: 05/02/2021 TECHNIQUE: Frontal view of the chest was obtained. FINDINGS: No significant abnormality is noted involving the heart, lungs, mediastinum, bony thorax or soft tissues. XR/XR chest 1V IMPRESSION: Unremarkable examination with no interval change.
--- NOTE | ~2023-05-23 | US_ITS ---
EXAMINATION: US PELVIS CLINICAL INFORMATION: Right adnexal mass. COMPARISON: CT abdomen and pelvis 05/23/2023 TECHNIQUE: Ultrasound of the pelvis is performed using both transabdominal and transvaginal transducers along with Doppler. Transvaginal imaging is performed due to inadequate visualization transabdominally. FINDINGS: Uterus: The uterus is anteverted, anteflexed and measures 7.7 x 3.3 x 4.2 cm. There is a hypoechoic lesion in the left fundus measuring 0.8 x 0.7 x 0.9 cm. The double wall endometrial thickness is 0.8 cm. The uterus is smooth in contour and has normal myometrial echogenicity. No visible fibroid. Adnexa: Both ovaries are visualized. There is normal color flow to the adnexa. There is no ovarian torsion. There is no pelvic ascites or fluid collection. Right ovary measures 4.0 x 3.0 x 2.9 cm and volume 18.2 mL. There is anechoic cyst measuring 3.0 x 2.0 x 2.4 seen. There is a small free fluid adjacent to right ovary. Left ovary measures 2.2 x 1.6 x 1.5 cm and volume 2.8 mL. There is small amount of free fluid adjacent to the right ovary. There is a nonvascular noncompressible areas seen medial to the right ovary question bowel loop. US/US pelvic and transvaginal IMPRESSION: Small uterine fibroid measuring less than 1 cm. The uterus is otherwise unremarkable. Small simple 3 cm cyst right ovary. This was visualized on recent CT abdomen 05/23/2023. There is fluid adjacent to the right ovary and in the cul-de-sac similar to CT findings. Likely nonvascular noncompressible bowel loop adjacent to the right ovary. No mass was seen in the pelvis on CT abdomen exam except for a ovarian cyst.
--- NOTE | ~2023-05-23 | US_ITS ---
EXAMINATION: US PELVIS CLINICAL INFORMATION: Right adnexal mass. COMPARISON: CT abdomen and pelvis 05/23/2023 TECHNIQUE: Ultrasound of the pelvis is performed using both transabdominal and transvaginal transducers along with Doppler. Transvaginal imaging is performed due to inadequate visualization transabdominally. FINDINGS: Uterus: The uterus is anteverted, anteflexed and measures 7.7 x 3.3 x 4.2 cm. There is a hypoechoic lesion in the left fundus measuring 0.8 x 0.7 x 0.9 cm. The double wall endometrial thickness is 0.8 cm. The uterus is smooth in contour and has normal myometrial echogenicity. No visible fibroid. Adnexa: Both ovaries are visualized. There is normal color flow to the adnexa. There is no ovarian torsion. There is no pelvic ascites or fluid collection. Right ovary measures 4.0 x 3.0 x 2.9 cm and volume 18.2 mL. There is anechoic cyst measuring 3.0 x 2.0 x 2.4 seen. There is a small free fluid adjacent to right ovary. Left ovary measures 2.2 x 1.6 x 1.5 cm and volume 2.8 mL. There is small amount of free fluid adjacent to the right ovary. There is a nonvascular noncompressible areas seen medial to the right ovary question bowel loop. US/US pelvic ovarian doppler IMPRESSION: Small uterine fibroid measuring less than 1 cm. The uterus is otherwise unremarkable. Small simple 3 cm cyst right ovary. This was visualized on recent CT abdomen 05/23/2023. There is fluid adjacent to the right ovary and in the cul-de-sac similar to CT findings. Likely nonvascular noncompressible bowel loop adjacent to the right ovary. No mass was seen in the pelvis on CT abdomen exam except for a ovarian cyst.
--- NOTE | ~2023-05-23 | CT_ITS ---
EXAMINATION: CT ABDOMEN AND PELVIS WITH CONTRAST CLINICAL INFORMATION: Right lower quadrant pain COMPARISON: None available. TECHNIQUE: Multidetector volumetric images were obtained from the superior aspect of the liver through the pubic symphysis following administration 85 mL of Omnipaque 350 intravenous contrast. Sagittal and coronal reformatted images were obtained on the technologist's workstation. Oral contrast: No This CT examination was performed using dose optimization techniques as appropriate, variously including the following: *Automated exposure control *Adjustment of mA and/or kV according to patient size (this includes techniques or standardized protocols for targeted exams where dose is matched to indication/reason for exam; i.e. extremities or head) *Use of iterative reconstruction technique DLP: 504 mGy-cm FINDINGS: REHABILITATION COUNSELLOR: Nonobstructive bowel pattern. Left hemipelvic phlebolith. Umbilical jewelry. LUNG BASES: The visualized lung bases are unremarkable. LIVER, GALLBLADDER, AND BILIARY TREE: The liver is normal in size, shape, and attenuation. No focal hepatic lesion or biliary ductal dilatation is present. The gallbladder is unremarkable with no evidence of radiopaque gallstones, gallbladder wall thickening, or obvious pericholecystic inflammatory changes. PANCREAS: Unremarkable. SPLEEN: Unremarkable. ADRENAL GLANDS: Unremarkable. KIDNEYS AND URETERS: The kidneys are normal in size, shape, and attenuation. No hydronephrosis, hydroureter, or calculi seen. No perinephric stranding. BLADDER: Unremarkable. GASTROINTESTINAL TRACT: Unremarkable stomach. Nonobstructive bowel pattern. Floppy cecum extending to the left midabdomen with unremarkable appendix. Diverticulosis without diverticulitis. ABDOMINAL WALL: No significant hernia is appreciated. LYMPH NODES: Normal. VASCULAR: Unremarkable. PELVIC VISCERA: 4.4 cm oval complex appearing right adnexal structure with free fluid. OSSEOUS STRUCTURES: Unremarkable. CT/CT abdomen pelvis w IV con IMPRESSION: 4.4 cm complex right adnexal structure with free fluid, unclear if tubo-ovarian versus ovarian. Pelvic ultrasound recommended. Fleischner guidelines were followed.
[2023-05-23 09:50] VITALS: BP 132/90; PULSE 82; RESP 19; TEMP 36.6; O2SAT 98; BMI 30.3
--- NOTE | 2023-05-23 09:53 | ECG_ITS ---
Test Reason : cp Blood Pressure : / mmHG Vent. Rate : 081 BPM Atrial Rate : 081 BPM P-R Int : 130 ms QRS Dur : 072 ms QT Int : 396 ms P-R-T Axes : 043 055 038 degrees QTc Int : 460 ms Normal sinus rhythm with sinus arrhythmia Cannot rule out Anterior infarct , age undetermined Abnormal ECG When compared with ECG of 04-DEC-2020 16:54, No significant change was found Referred By: Generic ED Physician Electronically Signed By:Chau Rodriguez
[2023-05-23 10:23] LABS: MANUAL DIFF FLAG NO
[2023-05-23 10:24] LABS: Basophils Percent Auto 0.4 % (0-2); Eosinophils Absolute Auto 0.3 X10*3/uL (0.0-0.4); Eosinophils Percent Auto 5.4 % (0-4); Hematocrit 41.2 % (37.0-47.0); Hemoglobin 14.7 g/dl (12.0-16.0); Imm Gran Abs Auto 0.02 X10*3/uL (0.00-0.03); Imm Gran Pct Auto 0.4 % (0.0-0.4); Lymphocytes Absolute Auto 1.8 X10*3/uL (1.2-4.9); Lymphocytes Percent Auto 35.9 % (20-40); Mean Corpuscular HGB Conc 35.7 g/dl (31.0-35.0); Mean Corpuscular Hemoglobin 30.6 pg (27.0-33.0); Mean Corpuscular Volume 85.7 fL (80.0-98.0); Monocytes Absolute Auto 0.5 X10*3/uL (0.1-1.2); Neutrophils Absolute Auto 2.4 x10*3/uL (2.0-8.3); Neutrophils Percent Auto 47.9 % (45-73); Platelet Count 225 X10*3/uL (160-400); Red Blood Count 4.81 X10*6/uL (4.20-5.50); Red Cell Distribution Width 12.1 % (11.0-16.0)
[2023-05-23 10:27] LABS: Appearance Urine Turbid; Color Urine Dark Yellow; Glucose Urine UA Negative (Negative); Leukocyte Esterase Urine Small (1+) (Negative); Nitrite Urine Negative (Negative); Specific Gravity - Urine >= 1.030 (1.005-1.025); UMIC TRIGGER UACC YES; UPreg QC Valid YES; Urine Blood Negative (Negative); Urine Ketones Negative (Negative); Urine Pregnancy NEGATIVE (NEGATIVE); Urine Protein 30 (1+) mg/dL (Neg-Trace)
[2023-05-23 10:39] LABS: Alanine Aminotransferase 24 U/L (0-31); Albumin Level 4.1 g/dL (3.5-5.0); Alkaline Phosphatase 53 U/L (39-117); Anion Gap 11 (12-20); Aspartate Amino Transferase 18 U/L (5-31); Bilirubin Direct 0.2 mg/dL (0.0-0.5); Bilirubin Total 0.4 mg/dL (0.0-1.0); Blood Urea Nitrogen 9 mg/dL (9-16); Carbon Dioxide 22 mmol/L (22-29); Chloride 111 mmol/L (96-108); Creatinine Clr Calc Pharmacy 82.5; Estimated Glomerular Filt Rate > 60; Glucose Random 112 mg/dL (60-115); Lipase 28 U/L (8-78); Potassium 3.5 mmol/L (3.3-5.1); Sodium 140 mmol/L (135-145); Total Protein 7.1 g/dL (6.5-8.0)
[2023-05-23 10:42] LABS: COVID-19 Test Negative (Negative); IDNOW Serial# 08D9AD1C; IDNOW Serial# 152EDE1D; Influenza A Negative (Negative); Influenza B2 Negative (Negative)
[2023-05-23 10:44] LABS: Bacteria Urine 4+ (None Seen); Hyaline Casts Urine >20 /LPF (0-2); RBC Urine 0-2 /HPF (0-2); Squamous Epithelial Cell Urine >20 /HPF (0-2); UACC Culture Trigger YES; WBC Urine >50 /HPF (0-5)
[2023-05-23 10:47] LABS: Troponin-I High Sensitivity < 2.7 ng/L (<3.5-17.0)
[2023-05-23] MEDS: 0.9 % Sodium Chloride 1,000 ML 999 ML IV (13:16)
[2023-05-23 13:27] LABS: D Dimer High Sensitivity 175 NG/ML
--- NOTE | 2023-05-23 13:32 | ED_ITS ---
HPI - Abdominal Pain General Chief Complaint: Abdominal Pain Stated Complaint: Chest Pain Stomach Pain X 2 Days Time Seen by Provider: 05/23/23 12:17 History of Present Illness HPI narrative: Patient is 33 years old presents today with having nausea vomiting. Having pain in the right lower quadrant. Decreasing appetite today. Also complaining of chest pain. The chest pain is mid chest a few very sharp it lasts a few seconds patient does not have any history of diabetes, hypertension, high cholesterol, smoking, mi not on control never had a blood clot no family history of blood clots no history of cancer patient pain in the abdomen has been ongoing since yesterday. There is no pain on urination there is no frequency. There has no vaginal discharge. There has no radiation of the pain. Never had any abdominal surgery in the past. No diarrhea. Related Data Previous Rx's Medication Instructions Recorded cyclobenzaprine 10 mg tablet 10 mg PO TID PRN muscle spasm #10 08/09/20 tabs ibuprofen 600 mg tablet 600 mg PO Q8H PRN pain #20 tabs 08/09/20 lidocaine 5 % topical patch 1 patch topical DAILY #15 ea 08/09/20 (Lidoderm) benzonatate 100 mg capsule 100 mg PO TID PRN cough 10 days 12/04/20 (Tessalon Perles) #30 caps codeine 10 mg-guaifenesin 100 mg/5 10 ml PO Q4-6H PRN cough 7 days 12/04/20 mL oral liquid hydrocodone-homatropine 5 mg-1.5 5 ml PO Q6H PRN cough #60 mL 02/22/21 mg/5 mL (5 mL) oral syrup (Hycodan) benzonatate 100 mg capsule 100 mg PO TID PRN cough #30 caps 05/02/21 cephalexin 500 mg capsule 500 mg PO BID 10 days #20 caps 03/17/22 codeine 10 mg-guaifenesin 100 mg/5 5 ml PO Q6H PRN cold symptoms #120 03/17/22 mL oral liquid (Guaifenesin AC) mL Allergies Allergy/AdvReac Type Severity Reaction Status Date / Time No Known Allergies Allergy Verified 05/23/23 09:49 Review of Systems Review of Systems Positive chest pain lasting a few seconds each time positive abdominal pain worse over the right side positive nausea vomiting Yes all other systems are reviewed and are negative PMFSH Past Medical History Medical History No known health problems Surgical History Olden teeth extracted H/O LEEP Social History Social History Alcohol intake: current Alcohol intake frequency: holidays/special occasions only Smoked in Last 30 Days: No Use of substances other than those prescribed or required for medical reasons: No Advance Directives: No Patient : No Physical Exam ED Vital Signs: Vital Signs - 24 hr 05/23/23 09:50 Temperature 98 F Pulse Rate 82 Respiratory Rate 19 Blood Pressure 132/90 H Pulse Oximetry 98 Oxygen Delivery Method Room Air BMI result Body Mass Index 30.3 Appearance: Alert. Oriented X3. No acute distress. Eyes: Pupils equal, round and reactive to light. ENT: Pharynx normal. Neck: Normal inspection. Neck supple. No lymph nodes noted. No crepitus CVS: Normal heart rate and rhythm. Pulses normal. Normal S1 and S2 Respiratory: No respiratory distress. Breath sounds normal. No Wheezing. No rales Abdomen: Soft and nontender. No rigidity. No distention. good BS x4 Skin: Skin warm and dry. Normal skin color. Normal skin turgor. Extremities: No lower extremity edema. Neurovascular intact to all extremities. No Lacerations. No Rash Neuro: Oriented X 3. No motor deficit. No sensory deficit. Moving all extermities. No slurred speech Medical Decision Making Medical Decision Making MDM Narrative: Patient well-appearing no acute distress her white count is normal. Patient's hemoglobin is 14.7 there has no evidence for anemia. Patient's D-dimer is 175 in the setting of low risk unlikely be PE. Patient's electrolytes showed a normal LFTs. There has no right upper quadrant tenderness unlikely secondary to biliary issues patient's lipase is 28 no evidence for pancreatitis patient's urine did show gross infection. With greater than 50 WBC 4+ bacteria. Will get CT scan of the abdomen pelvis to rule out the possibility of kidney stone versus appendicitis.My interpretation of patient's EKG showed sinus rhythm heart rate is 80 FL QRS QTC within normal limits there has no acute ST segment elevation noted. Symptoms not consistent with ACS. Patient's CT scan of the abdomen pelvis showed a adnexal cyst that is 4 cm in size. An ultrasound was ordered. Patient in no distress. Urine grossly infected a dose of Rocephin was given. Case being turned over the change of shift. Differential Diagnosis Differential Diagnoses: The differential diagnosis associated with the presentation includes ACS, PE, appendicitis, biliary disease, urinary tract infection, pyelo, kidney stone Admission/Observation Consideration of admission/observation: Escalation of care including admission/observation considered Lab Data MDM Lab Attestation statement: I reviewed the patient's lab results. 05/23/23 10:18 05/23/23 10:18 Labs: Lab Results 05/23/23 05/23/23 Range/Units 10:18 13:13 WBC 5.0 (4.8-10.8) X10*3/uL RBC 4.81 (4.20-5.50) X10*6/uL Hgb 14.7 (12.0-16.0) g/dl Hct 41.2 (37.0-47.0) % MCV 85.7 (80.0-98.0) fL MCH 30.6 (27.0-33.0) pg MCHC 35.7 H (31.0-35.0) g/dl RDW 12.1 (11.0-16.0) % Plt Count 225 (160-400) X10*3/uL MPV 10.0 (9.4-12.3) fL Immature Gran % (Auto) 0.4 (0.0-0.4) % Neut % (Auto) 47.9 (45-73) % Lymph % (Auto) 35.9 (20-40) % [place] % (Auto) 10.0 (2-11) % Eos % (Auto) 5.4 H (0-4) % Baso % (Auto) 0.4 (0-2) % Lymph # (Auto) 1.8 (1.2-4.9) X10*3/uL [place] # (Auto) 0.5 (0.1-1.2) X10*3/uL Eos # (Auto) 0.3 (0.0-0.4) X10*3/uL Baso # (Auto) 0.0 (0.0-0.2) X10*3/uL Abs Immat Gran (auto) 0.02 (0.00-0.03) X10*3/uL Absolute Neuts (auto) 2.4 (2.0-8.3) x10*3/uL Absolute Nucleated RBC 0.000 (0.0-0.012) X10*3/uL Nucleated RBC % (auto) 0.0 (0.0-0.2) /100WBC D-Dimer High Sensitivty 175 NG/ML Sodium 140 (135-145) mmol/L Potassium 3.5 (3.3-5.1) mmol/L Chloride 111 H (96-108) mmol/L Carbon Dioxide 22 (22-29) mmol/L Anion Gap 11 L (12-20) BUN 9 (9-16) mg/dL Creatinine 0.84 (0.5-1.4) mg/dL Estim Creat Clear Calc 82.5 Estimated GFR > 60 Random Glucose 112 (60-115) mg/dL Calcium 9.0 (8.4-10.2) mg/dL Total Bilirubin 0.4 (0.0-1.0) mg/dL Direct Bilirubin 0.2 (0.0-0.5) mg/dL AST 18 (5-31) U/L ALT 24 (0-31) U/L Alkaline Phosphatase 53 (39-117) U/L Troponin I High Sens < 2.7 < 2.7 (<3.5-17.0) ng/L Total Protein 7.1 (6.5-8.0) g/dL Albumin 4.1 (3.5-5.0) g/dL Lipase 28 (8-78) U/L Urine Color Dark Yellow Urine Appearance Turbid Urine pH 6.0 (5.0-9.0) Ur Specific [place] >= 1.030 H (1.005-1.025) Urine Protein 30 (1+) H (Neg-Trace) mg/dL Urine Glucose (UA) Negative (Negative) mg/dL Urine Ketones Negative (Negative) mg/dL Urine Blood Negative (Negative) Urine Nitrite Negative (Negative) Ur Leukocyte Esterase Small (1+) H (Negative) Urine RBC 0-2 (0-2) /HPF Urine WBC >50 H (0-5) /HPF Ur Squamous Epith Cells >20 (0-2) /HPF Urine Bacteria 4+ (None Seen) Hyaline Casts >20 (0-2) /LPF Urine Test NEGATIVE (NEGATIVE) COVID-19 (LUCY) Negative (Negative) COVID-19 Clin Com See Note Influenza Type A (RODNEY) Negative (Negative) Influenza Type A (PCR) NEGATIVE (Negative) Influenza Type B (RODNEY) Negative (Negative) Influenza Type B (PCR) NEGATIVE (Negative) Influenza A & B Note See Note RSV RNA Qual (PCR) NEGATIVE (Negative) SARS-CoV-2 RNA (RT-PCR) NEGATIVE (Negative) Independent Interpretation I performed an independent interpretation of an: CT Scan Radiology Impression Discussion of test interpretation with radiology: I have reviewed the radiologist's reading. External Record Review External record reviewed: Inpatient record Prescription Management I considered prescription management with: Pain Medication Medications Administered Discontinued Medications Generic Name Dose Route Start Last Admin Trade Name Freq PRN Reason Stop Dose Admin Sodium Chloride 1,000 mls @ 999 mls/hr 05/23/23 13:00 05/23/23 13:16 Ns IV 05/23/23 14:00 999 mls/hr .Q1H1M KIRSTEN Administration Iohexol 100 ml 05/23/23 14:00 05/23/23 14:00 Iohexol 350 Mg/Ml 100 Ml Infus..Btl IV 05/23/23 14:01 85 ml ONCE ONE Administration Discharge Plan Discharge Clinical Impression: Abdominal pain, UTI (urinary tract infection) Patient Disposition: Home, Self-Care Prescriptions: No Action cyclobenzaprine 10 mg tablet 10 mg PO TID PRN (Reason: muscle spasm) Qty: 10 0RF lidocaine [Lidoderm] 5 % adhesive patch,medicated 1 patch topical DAILY Qty: 15 0RF Rx Instructions: leave on most painful area for up to 12 hrs ibuprofen 600 mg tablet 600 mg PO Q8H PRN (Reason: pain) Qty: 20 0RF benzonatate [Tessalon Perles] 100 mg capsule 100 mg PO TID PRN (Reason: cough) 10 Days Qty: 30 0RF codeine-guaifenesin 10-100 mg/5 mL liquid 10 ml PO Q4-6H PRN (Reason: cough) 7 Days 0RF Rx Instructions: May substitute for formula excepted by her insurance cephalexin 500 mg capsule 500 mg PO BID 10 Days Qty: 20 0RF codeine-guaifenesin [Guaifenesin AC] 10-100 mg/5 mL liquid 5 ml PO Q6H PRN (Reason: cold symptoms) Qty: 120 0RF hydrocodone-homatropine [Hycodan] 5-1.5 mg/5 mL (5 mL) syrup 5 ml PO Q6H PRN (Reason: cough) Qty: 60 0RF benzonatate 100 mg capsule 100 mg PO TID PRN (Reason: cough) Qty: 30 0RF
--- NOTE | 2023-05-23 13:33 | PC.NURSE ---
20gIV placed in the left AC - labs obtained/sent to lab. IVF administered per provider order. pt waiting to go to CT at this time. respirations even and unlabored. resting comfortably in stretcher in no apparent distress.
[2023-05-23 13:45] LABS: Troponin-I High Sensitivity < 2.7 ng/L (<3.5-17.0)
[2023-05-23] MEDS: iohexoL 350 MG/ML 100 ML INFUS..BTL IV (14:00)
[2023-05-23 14:06] LABS: Influenza A PCR NEGATIVE (Negative); Influenza B PCR NEGATIVE (Negative); Resp Syncy Virus RNA Qual PCR NEGATIVE (Negative); SARS COV2 PCR INHOUSE NEGATIVE (Negative)
[2023-05-23] MEDS: cefTRIAXone sodium 1 GM in 0.9 % Sodium Chloride 50 ML IV (17:39)
[2023-05-23 18:23] VITALS: BP 124/83; PULSE 76; RESP 18; TEMP 36.7; O2SAT 99
== END 2023-05-23 19:01 | disposition home or self-care (01) ==
PROVIDERS: Emergency Medicine Emergency Medical Services; Emergency Provider Emergency Medicine; PCP Internal Medicine
DX: N39.0 Urinary tract infection, site not specified (principal); R10.31 Right lower quadrant pain; Z11.52 Encounter for screening for COVID-19; Z20.828 Contact with and (suspected) exposure to other viral communicable diseases
CPT/HCPCS: 0241U; 36415; 71045; 74177; 76830; 76856; 80048; 80076; 81001; 81025; 83690; 84484; 85025; 85379; 87086; 87502; 87635; 93005; 93975; 96365; 96366; 99284; 99285; J0696; Q9967

== ENCOUNTER → 2023-05-23 09:53 | Outpatient (BNV) | payer OTHER, SELFPAY | PROVIDERS: Emergency Provider Emergency Medicine; PCP Internal Medicine; Visit Provider Internal Medicine Cardiovascular Disease | DX: R94.31 Abnormal electrocardiogram [ECG] [EKG] (principal) | CPT/HCPCS: 93010 ==